=== PATIENT | male | born 1940 | race African-American/Black ===

== ENCOUNTER 2023-08-26 16:11 | Inpatient (IN) | payer SELFPAY ==
[~2023-08-26] VITALS: Ht 167.6 cm; Wt 82.6 kg
[2023-08-26 17:35] LABS: BASOPHILS % (AUTO) 1.1 % (0.0-2.0); EOSINOPHILS % (AUTO) 1.5 % (1.0-6.0); HEMATOCRIT 33.9 % (41-53); HEMOGLOBIN 11.1 g/dL (13.5-17.5); LYMPHOCYTES # (AUTO) 1.7 K/uL (1.0-4.8); LYMPHOCYTES % (AUTO) 28.2 % (22.0-44.0); MEAN CORPUSCULAR HEMOGLOBIN 26.6 pg (26.0-34.0); MEAN CORPUSCULAR HGB CONC 32.9 G/dL (31.0-37.0); MEAN CORPUSCULAR VOLUME 81 fL (80-100); MONOCYTES # (AUTO) 0.5 K/uL (0.1-1.0); NEUTROPHILS # (AUTO) 3.7 K/uL (1.8-7.7); NEUTROPHILS % (AUTO) 61.2 % (40.0-70.0); PLATELET COUNT (AUTO) 213 K/uL (150-450); RED BLOOD CELL COUNT(AUTO) 4.19 MIL/uL (4.50-5.90); RED CELL DISTRIBUTION WIDTH 17.7 % (11.5-14.5); WHITE BLOOD COUNT (AUTO) 6.1 K/uL (4.5-11.0)
[2023-08-26 17:40] LABS: ANION GAP 3 mmol/L (8-16); CALCIUM, TOTAL 9.5 mg/dL (8.8-10.5); CARBON DIOXIDE 28 mmol/L (22-29); CHLORIDE 105 mmol/L (98-107); CREATININE 1.03 mg/dL (0.60-1.30); GLOMERULAR FILTR. RATE CALC > 60 mL/min (>60); GLUCOSE,RANDOM 89 mg/dL (70-110); POTASSIUM 3.7 mmol/L (3.5-5.1); SODIUM SERUM 136 mmol/L (136-145); UREA NITROGEN, BLOOD 12 mg/dL (7-18)
[2023-08-26 17:45] LABS: INR 1.1 (0.9-1.1)
[2023-08-26 17:48] LABS: TROPONIN I-HIGH SENSITIVITY 7 ng/L (<76)
[2023-08-26 17:56] LABS: B-TYPE NATRIURETIC PEPTIDE < 5 pg/mL (0-100); PLATELET MORPHOLOGY COMMENT LARGE PLTS PRESENT; RBC MORPHOLOGY COMMENT NORMAL RBC MORPH
[2023-08-26] MEDS ORDERED: HYDROmorphone HCL 2 MG/ML SYRINGE IVP ONE (18:00)
[2023-08-26 18:03] LABS: ALANINE AMINOTRANSFERASE 29 U/L (12-78); ALKALINE PHOSPHATASE 86 U/L (46-116); ASPARTATE AMINOTRANSFERASE 17 U/L (15-37); CREATINE KINASE, TOTAL ONLY 133 U/L (39-308); TOTAL PROTEIN, SERUM 6.5 g/dL (6.4-8.2)
[2023-08-26 18:38] LABS: COVID AG,FIA SOURCE NASAL SWAB
[2023-08-26] MEDS ORDERED: ONDANSETRON HCL 4 MG/2 ML VIAL IVP PRN (18:45)
[2023-08-26] MEDS ORDERED: ACETAMINOPHEN 325 MG TABLET PO PRN (18:45)
[2023-08-26 19:01] LABS: SARS-COV2 (COVID) ANTIGEN,FIA Negative (Negative)
[2023-08-26] MEDS ORDERED: HEPARIN SODIUM,PORCINE 5,000 UNITS/ML VIAL IVP ONE (20:15)
[2023-08-26] MEDS ORDERED: HEPARIN SODIUM,PORCINE 5,000 UNITS/ML VIAL IVP PRN ×2 (20:15)
[2023-08-26] MEDS ORDERED: HEPARIN SODIUM 25000 UNITS/D5W 250 ML IV PRN (20:15)
[2023-08-26] MEDS ORDERED: ASPIRIN 81 MG CHEWABLE TABLET PO ONE (20:15)
[2023-08-26 20:34] VITALS: BP 138/96; PULSE 91; RESP 20; TEMP 98.3
[2023-08-26] MEDS: DOCUSATE SODIUM 100 MG CAPSULE PO SCH (21:00)
[2023-08-26] MEDS: METOPROLOL TARTRATE 25 MG TABLET PO SCH (21:34)
[2023-08-27] MEDS ORDERED: HEPARIN SODIUM,PORCINE 5,000 UNITS/ML VIAL SQ SCH
[2023-08-27] MEDS: DOCUSATE SODIUM 100 MG CAPSULE PO SCH ×2 (08:51→21:27)
[2023-08-27] MEDS: ASPIRIN 81 MG CHEWABLE TABLET PO SCH (08:51)
[2023-08-27] MEDS: METOPROLOL TARTRATE 25 MG TABLET PO SCH ×2 (08:51→21:27)
[2023-08-27] MEDS: ATORVASTATIN CALCIUM 40 MG TABLET PO SCH (08:51)
[2023-08-27 08:56] VITALS: BP 126/72; PULSE 93; RESP 20; TEMP 98
[2023-08-27] MEDS ORDERED: HYDROmorphone HCL 2 MG/ML SYRINGE IVP PRN (11:00)
[2023-08-27 16:23] LABS: BASOPHILS % (AUTO) 0.9 % (0.0-2.0); EOSINOPHILS % (AUTO) 2.1 % (1.0-6.0); HEMATOCRIT 34.4 % (41-53); HEMOGLOBIN 11.5 g/dL (13.5-17.5); LYMPHOCYTES # (AUTO) 1.2 K/uL (1.0-4.8); LYMPHOCYTES % (AUTO) 23.1 % (22.0-44.0); MEAN CORPUSCULAR HEMOGLOBIN 27.2 pg (26.0-34.0); MEAN CORPUSCULAR HGB CONC 33.6 G/dL (31.0-37.0); MEAN CORPUSCULAR VOLUME 81 fL (80-100); MONOCYTES # (AUTO) 0.5 K/uL (0.1-1.0); MONOCYTES % (AUTO) 9.4 % (2.0-9.0); NEUTROPHILS # (AUTO) 3.4 K/uL (1.8-7.7); NEUTROPHILS % (AUTO) 64.5 % (40.0-70.0); PLATELET COUNT (AUTO) 224 K/uL (150-450); RED BLOOD CELL COUNT(AUTO) 4.24 MIL/uL (4.50-5.90); RED CELL DISTRIBUTION WIDTH 17.8 % (11.5-14.5); WHITE BLOOD COUNT (AUTO) 5.3 K/uL (4.5-11.0)
[2023-08-27 16:30] LABS: ANION GAP 3 mmol/L (8-16); CALCIUM, TOTAL 9.4 mg/dL (8.8-10.5); CARBON DIOXIDE 27 mmol/L (22-29); CHLORIDE 104 mmol/L (98-107); CREATININE 1.08 mg/dL (0.60-1.30); GLOMERULAR FILTR. RATE CALC > 60 mL/min (>60); GLUCOSE,RANDOM 142 mg/dL (70-110); POTASSIUM 4.1 mmol/L (3.5-5.1); SODIUM SERUM 134 mmol/L (136-145); UREA NITROGEN, BLOOD 14 mg/dL (7-18)
[2023-08-27] MEDS: TAMSULOSIN HCL 0.4 MG CAPSULE PO SCH ×2 (16:36→21:27)
[2023-08-27 17:04] LABS: TROPONIN I-HIGH SENSITIVITY 7 ng/L (<76)
[2023-08-27 19:32] LABS: APPEARANCE,URINE CLEAR (CLEAR); BILIRUBIN,URINE NEGATIVE (NEGATIVE); COLOR,URINE YELLOW (YELLOW); GLUCOSE, URINE (UA) NEGATIVE (NEGATIVE); KETONES,URINE NEGATIVE (NEGATIVE); LEUKOCYTE ESTERASE ,URINE NEGATIVE (NEGATIVE); NITRATE,URINE NEGATIVE (NEGATIVE); OCCULT BLOOD,URINE NEGATIVE (NEGATIVE); PROTEIN,URINE TRACE mg/dL (NEGATIVE); SPECIFIC GRAVITIY, URINE 1.022 (1.003-1.030)
[2023-08-27 20:15] VITALS: BP 137/83; PULSE 83; RESP 19; TEMP 98.2
[2023-08-28 00:42] VITALS: BP 110/70; PULSE 87; RESP 19; TEMP 98
[2023-08-28 07:09] VITALS: BP 131/80; PULSE 85; RESP 18; TEMP 98.2
[2023-08-28] MEDS: ATORVASTATIN CALCIUM 40 MG TABLET PO SCH (08:11)
[2023-08-28] MEDS: ASPIRIN 81 MG CHEWABLE TABLET PO SCH (08:11)
[2023-08-28] MEDS: METOPROLOL TARTRATE 25 MG TABLET PO SCH (08:11)
[2023-08-28] MEDS: TAMSULOSIN HCL 0.4 MG CAPSULE PO SCH (08:11)
[2023-08-28] MEDS: DOCUSATE SODIUM 100 MG CAPSULE PO SCH (08:12)
[2023-08-28 11:03] VITALS: BP 136/89; PULSE 73; RESP 18; TEMP 98.9
== END 2023-08-28 12:15 | disposition left against medical advice (07) | DRG 303 ==
LOC: EMS 16:13 → 5S 18:40
PROVIDERS: ADMIT Internal Medicine; ATTEND Internal Medicine
DX: I25.10 Atherosclerotic heart disease of native coronary artery without angina pectoris (principal); R07.89 Other chest pain; R61 Generalized hyperhidrosis; I10 Essential (primary) hypertension; E78.5 Hyperlipidemia, unspecified; D64.9 Anemia, unspecified; F17.210 Nicotine dependence, cigarettes, uncomplicated; N40.0 Benign prostatic hyperplasia without lower urinary tract symptoms; Z20.822 Contact with and (suspected) exposure to COVID-19; Z53.29 Procedure and treatment not carried out because of patient's decision for other reasons; Z91.199 Patient's noncompliance with other medical treatment and regimen due to unspecified reason; Z76.5 Malingerer [conscious simulation]; Z86.711 Personal history of pulmonary embolism; Z95.5 Presence of coronary angioplasty implant and graft; Z91.041 Radiographic dye allergy status; Z88.8 Allergy status to other drugs, medicaments and biological substances; Z88.6 Allergy status to analgesic agent; Z82.49 Family history of ischemic heart disease and other diseases of the circulatory system; I25.2 Old myocardial infarction
CPT/HCPCS: 36245; 36569; 71045; 76937; 80048; 80053; 81003; 82550; 83735; 83880; 84484; 85025; 85610; 85730; 93005; 93306; 99285; G0378; J1170; J1644; 36415-L1; 36415-TC